=== PATIENT | male | born 1955 | race Caucasian/White ===

== ENCOUNTER 2021-07-14 01:36 | Day surgery (SDC) | payer MEDICARE, SELFPAY ==
[2021-06-27 08:38] VITALS: BMI 22.7
[2021-07-14 06:47] VITALS: BP 118/68; PULSE 53; RESP 15; TEMP 36; O2SAT 100; BMI 22.8
[2021-07-14] MEDS: LACTATED RINGERS 1,000 ML 150 ML IV CONT (06:49)
--- NOTE | 2021-07-14 06:57 | PM.HPGS ---
History of Present Illness History of Present Illness Consent: Risks, benefits, and alternatives have been discussed and questions answered. Patient agrees to proceed with procedure. Chief complaint: neoplasm screening Narrative: Ibrahima Cassidy Jr. is a 65 year old male referred for colon cancer screening. His last colonoscopy was 5 years ago. He had 3 polyps removed at that time Review of Systems Review of Systems: All systems reviewed & are unremarkable except as noted in HPI and below PMFSH Surgical History Surgical History H/O knee surgery Family History Family History Father COPD (chronic obstructive pulmonary disease) Social History Social History Smoking status: Former smoker Tobacco type: cigarettes Alcohol intake: current Drinks per week: 6 Alcohol use details: occasionally Substance use: never Substance use type: does not use Living arrangements: with family Spiritual care concerns: No Meds Home Medications and Allergies Home Medications Medication Instructions Recorded Confirmed Type No Home Medications 11/18/20 07/14/21 History Allergies Allergy/AdvReac Type Severity Reaction Status Date / Time No Known Drug Allergies Allergy Unknown Unknown Verified 07/14/21 06:46 Vital Signs Vital Signs - 24 hr 07/14/21 06:47 Temperature 36.0 C L Pulse Rate 53 L Respiratory Rate 15 Blood Pressure 118/68 Pulse Oximetry 100 Assessment and Plan Assessment and plan (1) Colon cancer screening: Code(s): Z12.11 - Encounter for screening for malignant neoplasm of colon Status: Acute Assessment and Plan: Colonoscopy with possible biopsy or polypectomy or cautery or injection of substances.
--- NOTE | 2021-07-14 07:22 | WPDANESEPPF ---
Anes - Initial Pre Proc Eval Procedure: Operation Date: 07/14/21 08:00 Proposed Procedures p Screening Colonoscopy - Dewayne Pineda MD Date/Time: 07/14/21 07:22 Surgeon: Dewayne Pineda MD Pre Op Diagnosis: neoplasm screening Patient Data Age: 65 Gender: M Height: 1.78 m Weight: 72.1 kg Last Vital Signs Temp 36.0 C L 07/14/21 06:47 Pulse 53 L 07/14/21 06:47 Resp 15 07/14/21 06:47 BP 118/68 07/14/21 06:47 Pulse Ox 100 07/14/21 06:47 Allergies Allergy/AdvReac Type Severity Reaction Status Date / Time No Known Drug Allergies Allergy Unknown Unknown Verified 07/14/21 06:46 Home Medications Medication Instructions Recorded Confirmed Type No Home Medications 11/18/20 07/14/21 History Patient hx anesthesia problems: none Family hx anesthesia problems: none Results Review: All pre-operative results and documents have been reviewed as part of the pre-operative evaluation. FORMERLY [facility], [facility] Surgical History Surgical History H/O knee surgery Family History Family History Father COPD (chronic obstructive pulmonary disease) Social History Social History Smoking status: Former smoker Tobacco type: cigarettes Alcohol intake: current Drinks per week: 6 Alcohol use details: occasionally Substance use: never Substance use type: does not use Living arrangements: with family Spiritual care concerns: No Anes - Eval Final PreProcedure Day of Procedure 07/14/21 07:22 Patient weight: normal Heart: regular rate and rhythm Lungs: clear to auscultation Airway: Mallampati scale class II Neurological: alert and oriented Last oral intake: >/= 8 hours ASA classification: II Emergent: no Anesthetic plan: proceed Anesthesia type and monitoring: general GIVS and standard monitoring Results Review: All pre-operative results and documents have been reviewed as part of the pre-operative evaluation. Informed Consent: The patient's anesthetic plan and its attendant risks and benefits were discussed with the patient/family/POA. Questions were solicited and answers provided to the satisfaction of the patient/family/POA.
[2021-07-14 08:09] VITALS: BP 137/109; PULSE 52; RESP 16; O2SAT 99
[2021-07-14 08:19] VITALS: BP 87/56; PULSE 58; RESP 15; O2SAT 98
[2021-07-14 08:29] VITALS: BP 86/61; PULSE 58; RESP 16; O2SAT 100
== END 2021-07-14 08:44 | disposition home or self-care (01) ==
PROVIDERS: PCP Internal Medicine; Visit Provider Internal Medicine Gastroenterology
PROC: 0DJD8ZZ Inspection of Lower Intestinal Tract, Via Natural or Artificial Opening Endoscopic (ICD-10-PCS; CPT 45378; principal; 2021-07-14 08:00)
DX: Z12.11 Encounter for screening for malignant neoplasm of colon (principal); Z86.010 Personal history of colon polyps; K57.30 Diverticulosis of large intestine without perforation or abscess without bleeding; J44.9 Chronic obstructive pulmonary disease, unspecified; Z87.891 Personal history of nicotine dependence
CPT/HCPCS: G0105; J2704; J7120

== ENCOUNTER 2022-10-05 08:18 | Outpatient (CLI) | payer MEDICARE, SELFPAY ==
[2022-10-05 10:09] LABS: Basophils Percent Auto 0.7 % (0.2-1.2); Eosinophils Absolute Auto 0.3 K/mm3 (0-0.3); Eosinophils Percent Auto 5.3 % (0-4.4); Hematocrit 45.7 % (42.0-52.0); Hemoglobin 15.4 g/dL (14.0-18.0); Immature Granulocyte Absolute 0.03 K/mm3 (0.00-0.031); Immature Granulocyte Percent A 0.5 % (0-0.5); Lymphocytes Absolute Auto 1.71 K/mm3 (0.9-3.2); Lymphocytes Percent Auto 28.5 % (18.3-44.2); Mean Corpuscular HGB Conc 33.7 g/dl (32-36); Mean Corpuscular Hemoglobin 31.8 pg (26-34); Mean Corpuscular Volume 94.4 fl (80-100); Monocytes Absolute Auto 0.5 K/mm3 (0.1-0.6); Neutrophils Absolute Auto 3.4 K/mm3 (1.3-6.7); Platelet Count Result 228 k/mm3 (150-375); Red Blood Count 4.84 M/mm3 (4.6-6.20); Red Cell Distribution Width 13.2 % (11.5-14.5)
[2022-10-05 10:23] LABS: Alanine Aminotransferase 31 U/L (6-50); Albumin Level 4.2 g/dL (3.5-5.1); Alkaline Phosphatase 73 U/L (38-126); Anion Gap 3 mmol/L (8-16); Aspartate Amino Transferase 35 U/L (17-59); Bilirubin,Total 0.7 mg/dL (0.2-1.3); Blood Urea Nitrogen 14 mg/dL (9-20); Calcium 8.7 mg/dL (8.4-10.2); Carbon Dioxide 31 mmol/L (22-30); Chloride 107 mmol/L (98-107); Estimated Glomerular Filt Rate > 60; Glucose 94 mg/dL (65-110); Potassium 4.5 mmol/L (3.4-5.0); Sodium 141 mmol/L (137-145)
[2022-10-05 10:56] LABS: Prostate Specific Antigen 1.7 ng/mL (< OR = 4.0)
== END 2022-10-05 08:19 | disposition home or self-care (01) ==
PROVIDERS: PCP Internal Medicine; Visit Provider Nurse Practitioner
DX: R53.83 Other fatigue (principal); Z13.29 Encounter for screening for other suspected endocrine disorder; Z13.220 Encounter for screening for lipoid disorders; Z12.5 Encounter for screening for malignant neoplasm of prostate
CPT/HCPCS: 36415; 80053; 84153; 85025; G0103

== ENCOUNTER 2023-07-16 11:42 | Outpatient (CLI) | payer MEDICARE, SELFPAY ==
[2023-07-16 18:39] LABS: Basophils Absolute Auto 0.1 K/mm3 (0.0-0.1); Basophils Percent Auto 0.7 % (0.2-1.2); Eosinophils Absolute Auto 0.2 K/mm3 (0-0.3); Eosinophils Percent Auto 3.2 % (0-4.4); Hematocrit 45.9 % (42.0-52.0); Immature Granulocyte Absolute 0.03 K/mm3 (0.00-0.031); Immature Granulocyte Percent A 0.4 % (0-0.5); Lymphocytes Absolute Auto 2.05 K/mm3 (0.9-3.2); Lymphocytes Percent Auto 28.8 % (18.3-44.2); Mean Corpuscular HGB Conc 32.7 g/dl (32-36); Mean Corpuscular Volume 94.8 fl (80-100); Mean Platelet Volume 10.3 fl (7.4-10.4); Monocytes Absolute Auto 0.5 K/mm3 (0.1-0.6); Monocytes Percent Auto 7.5 % (2.6-8.5); Neutrophils Absolute Auto 4.2 K/mm3 (1.3-6.7); Neutrophils Percent Auto 59.4 % (45.5-73.1); Platelet Count Result 234 k/mm3 (150-375); Red Blood Count 4.84 M/mm3 (4.6-6.20); Red Cell Distribution Width 12.7 % (11.5-14.5); White Blood Count 7.1 K/mm3 (4.5-10.0)
[2023-07-16 18:44] LABS: Alanine Aminotransferase 34 U/L (6-50); Albumin Level 4.3 g/dL (3.5-5.1); Alkaline Phosphatase 78 U/L (38-126); Anion Gap 5 mmol/L (8-16); Aspartate Amino Transferase 46 U/L (17-59); Bilirubin,Total 0.9 mg/dL (0.2-1.3); Blood Urea Nitrogen 16 mg/dL (9-20); Calcium 9.4 mg/dL (8.4-10.2); Carbon Dioxide 31 mmol/L (22-30); Chloride 103 mmol/L (98-107); Estimated Glomerular Filt Rate > 60; Glucose 85 mg/dL (65-110); Potassium 4.5 mmol/L (3.4-5.0); Sodium 139 mmol/L (137-145)
[2023-07-16 19:11] LABS: Thyroid Stimulating Hormone 0.812 uIU/mL (0.465-4.680)
== END 2023-07-16 11:43 | disposition home or self-care (01) ==
LOC: ANHGOSHLAB 11:43
PROVIDERS: PCP Internal Medicine; Visit Provider Nurse Practitioner
DX: Z12.5 Encounter for screening for malignant neoplasm of prostate (principal); D64.9 Anemia, unspecified; R53.83 Other fatigue; Z13.220 Encounter for screening for lipoid disorders; Z13.29 Encounter for screening for other suspected endocrine disorder; I48.92 Unspecified atrial flutter
CPT/HCPCS: 36415; 80053; 82728; 84443; 85025

== ENCOUNTER 2023-12-03 08:01 | Outpatient (CLI) | payer MEDICARE, SELFPAY ==
[2023-12-03 15:32] LABS: Cholesterol 241 mg/dL (0-200); HDL Direct 80 mg/dL; Triglycerides 64 mg/dL (<150)
[2023-12-03 15:44] LABS: LDL Cholesterol Direct 128 mg/dL
[2023-12-03 16:04] LABS: Prostate Specific Antigen 1.8 ng/mL (< OR = 4.0)
== END 2023-12-03 08:02 | disposition home or self-care (01) ==
PROVIDERS: PCP Internal Medicine; Visit Provider Nurse Practitioner
DX: Z12.5 Encounter for screening for malignant neoplasm of prostate (principal); E78.5 Hyperlipidemia, unspecified
CPT/HCPCS: 36415; 80061; 84153; G0103

== ENCOUNTER 2024-11-30 08:04 | Outpatient (CLI) | payer MEDICARE, SELFPAY ==
--- OUTSIDE RECORDS SUMMARY | 2024-11-30 08:09 | XMS_ITS | CONTINUITY OF CARE DOCUMENT ---
Author Name stacey ibarra Address Unknown Organization [facility] Address [address] [place] [address] Phone [phone] Care Team Providers Care Local Sales Associate Name Role Phone Jason Valentine MD Unavailable SHANIQUA LANDAVERDE DO Unavailable [phone] SHANIQUA LANDAVERDE DO Unavailable [phone] PROBLEMS Condition Status Date Provider Notes S/P Dual chamb PCM - Biotronik ( MRI Safe) active 2022 Claudia Morales Atrial flutter active Sergio Mejia Personal history of COVID-19 active Sergio ivy Cough active Sergio Mejia Sinus pause- 7 sec active Shaquille Ricardo Sleep apnea, mild active Shaquille Ricardo ENCOUNTERS Date Type Provider Location Encounter Diag nosis - In-person encounter Office Visit Jason Valentine MD [facility] - In-person encounter Office Visit Jason Valentine MD [facility] - In-person encounter Office Visit Jason Valentine MD [facility] - In-person encounter Office Visit Jason Valentine MD [facility] Sinus pause- 7 secSleep apnea, mild - In-person encounter Office Visit Jason Valentine MD [facility] Atrial flutterPersonal history of COVID-19Cough VITAL SIGNS Date Observation Value Provider Body Mass Index (Ratio) 24.25 kg/m2 Jaswinder Ricardo blood pressure, cuff size regular Ke rri Gruenenfelder blood pressure, diastolic 70 mm[Hg] Ke rri Gruenenfelder blood pressure, systolic 142 mm[Hg] Ker ri Gruenenfelder oxygen saturation, oximetry 100 % Claudia Grdungnfelder pulse rate 61 /min Claudia Gruenenfe [facility] weight E&M 169 [lb_av] Claudia Gruenenfe [facility] height E&M 70 [in_i] Claudia Gruenenfe [facility] Body Mass Index (Ratio) 1.43 kg/m2 Edy Kay blood pressure, cuff size regular Fa [facility] blood pressure, diastolic 73 mm[Hg] Fa [facility] blood pressure, systolic 108 mm[Hg] [facility] pulse rate 67 /min [facility] oxygen saturation, oximetry 99 % [facility] respiratory rate E&M 16 /min Jazmyne Darion veliz weight E&M 10 [lb_av] [facility] height E&M 70 [in_i] [facility] Body Mass Index (Ratio) 23.82 kg/m2 Saul Valentine MD blood pressure, cuff size regular Ke rri Gruenenfelder blood pressure, diastolic 66 mm[Hg] Ke rri Gruenenfelder blood pressure, systolic 102 mm[Hg] Lorene ri Lisa oxygen saturation, oximetry 99 % Claudia Jatineldyoni respiratory rate E&M 12 /min Claudia roach pulse rate 65 /min Claudia Gruenenfe lder weight E&M 166 [lb_av] Claudia Gruenenfe lder height E&M 70 [in_i] Claudia Gruenenfe lder Body Mass Index (Ratio) 24.53 kg/m2 Jaswinder hahn [place] blood pressure, cuff size regular Ke rri Gruenenfelder blood pressure, diastolic 80 mm[Hg] Ke rri Gruenenfelder blood pressure, systolic 130 mm[Hg] Lorene ri Gruenenfelder oxygen saturation, oximetry 97 % Claudia Gruenenfelder respiratory rate E&M 12 /min Claudia G ruenenfelder pulse rate 59 /min Claudia Grrickeynenfe lder weight E&M 171 [lb_av] Claudia Gruenenfe lder height E&M 70 [in_i] Claudia Grrickeynenfe lder Body Mass Index (Ratio) 23.10 kg/m2 Sergio Jerezi blood pressure, cuff size regular Ke rri Gruenenfelder blood pressure, diastolic 72 mm[Hg] Ke rri Gruenenfelder blood pressure, systolic 112 mm[Hg] Lorene ri Gruenenfelder oxygen saturation, oximetry 98 % Claudia Gruenenfelder respiratory rate E&M 12 /min Claudia G ruenenfelder pulse rate 72 /min Claudia Gruenenfe lder weight E&M 161 [lb_av] Claudia Gruenenfe lder height E&M 70 [in_i] Claudia Gruenenfe lder ALLERGIES No Known Drug Allergies HISTORY OF MEDICATION USE Medication Status Instructions Dates Provider Indications Com ments Eliquis 5 mg tablet active Take 1 tablet by mouth twice a day Claudia Kennyana Atrial flutter cephalexin 250 mg capsule completed Take 1 capsule by mouth three times a day - June Hines NP Percocet 5-325 mg tablet completed Take 1 tablet by mouth every eight hours as needed for pain do not drive or use any machinery for 12 hours after taking this medication - June Hines NP ibuprofen 200 mg capsule completed 600mg as needed for pain - June Hines NP SOCIAL HISTORY Date Observation Value Provider Underweight no Shaquille Ricardo smoking status Never smoker Marcio Iorfida Underweight yes Derik Kay smoking status Never smoker Derik medellin smoking status Never smoker June lopez NP smoking status Never smoker Shaquille Ricardo smoking status Never smoker June lopez NP INSURANCE PROVIDERS Payer name Policy type / Coverage type Zachary red alliance party ID [employer] MEDICARE GOLD ADVANTAGE HMO Medicare [id number] ADVANCE DIRECTIVES Name Date DISCUSSED - NO DECISION MADE TREATMENT PLAN Date Name Performer [id number],C,n ew onset AFLUTTER. rate is controlled e kg AFLUTTER pt had labs drawn with PCP today. will request results CHADVASC 1 recommendation for aflutter ablation. will check preablation CT, carotids, echo, and home sleep study. explained procedure in detail. all questions and concerns addressed. pt in agreement to proceed with aflutter ablation as planned. June Hines NP [id number],C,FEBRUARY 2022 Elsi Hines NP Electrophysiology: P bryon Buckley Iorfarlin Electrophysiology: N o recent episodes according to device check This visit has been a part of the consistent, comprehensive, and ongoing management of the chronic medical condition(s) listed above for the patient. Marcio Iorfida Electrophysiology: 0 % AFlutter on check 08/27/23 Derik Shirleyinari Electrophysiology:CPAP ordered 1 10/31/22 Derik Kay Electrophysiology:0% AFlutter on interrogation today. June Flora SOFIA Electrophysiology: i ndication for a pacemaker. He does not recall any episodes of syncope June Chungfidelina BUFFERER Electrophysiology Shaquille Ricardo Electrophysiology:s/ p Aflutter ablation. regular upon PE Shaquille Ricardo Electrophysiology:in dication for a pacemaker. He does not recall any episodes of syncope Shaquille Ricardo Electrophysiology:ne w onset AFLUTTER. rate is controlled e kg AFLUTTER pt had labs drawn with PCP today. will request results CHADVASC 1 recommendation for aflutter ablation. will check preablation CT, carotids, echo, and home sleep study. explained procedure in detail. all questions and concerns addressed. pt in agreement to proceed with aflutter ablation as planned. June Flora SOFIA Electrophysiology:FEBRUARY 2022 Elsy Hines BUFFERER Date Name Aorta Duplex Ultraso und Carotid Duplex Bilat eral Complete Echo ABLATION w/ Anesthes ia Sleep Study Home CT Cardiac with cont rast (Pre-Ablation) Carotid Duplex Bilat eral Complete Echo HISTORY OF PROCEDURES Procedure Date Procedure Name Provider Procedure Notes S tatus Complex e/m visit ad d on Jason Valentine MD completed EKG Jason Valentine MD comp leted Schedule Followup Jason Valentine MD de cember 29 Dr. Valentine completed EKG Jason Valentine MD comp leted venous ablation, subsequent veins Jason Valentine MD completed
--- OUTSIDE RECORDS SUMMARY | 2024-11-30 08:09 | XMS_ITS | Encounter Summary ---
Author Organization [facility] Address [address] [place] [address] Care Team Providers Care Music Intern Name Role Phone Unavailable Primary Care Provider Unavailabl e Encounter Details Date Type Department Care Team (Late st Contact Info) Description 10/27/2018 Lab Requisition [facility] Care DermPath Lab [address] [place] [id number] Florina Mendoza MD [address] [place] [address] [place] [address] Social History Tobacco Use Types Packs/Day Years Used Date Smoking Tobacco: Never Assessed Sex and Gender Information Value Date Recorded Sex Assigned at Not on file Gender Identity Not on file Sexual Orientation Not on file documented as of this encounter Plan of Treatment Not on file documented as of this encounter Procedures Procedure Name Priority Date/Time Associated Diagnosis Comments DERMATOPATH TECHNICAL REPORT Routine 10/26/2018 12:00 AM DISASTER RESPONSE DIRECTOR documented in this encounter Results * DERMATOPATH TECHNICAL REPORT (10/26/2018 12:00 AM DISASTER RESPONSE DIRECTOR) Case Report Dermatopathology Report Case: [id number] Authorizing Provider: Florina Mendoza MD Collected: 10/26/2018 12:00 AM Pathologist: Darion Hdez MD Received: 10/27/2018 06:29 AM Specimen: Skin, left neck 9 11:58 AM DISASTER RESPONSE DIRECTOR DERMATOPATHOLOGY LABORATORY Addendum 1 At the request of the diagnosing physician, the technical component for GMS and Tissue Gram was performed by [facility] Dermatopathology Laboratory. 9 11:58 AM DISASTER RESPONSE DIRECTOR DERMATOPATHOLOGY LABORATORY Addendum electronically signed by Darion Hdez MD on 11/02/2018 at 11:58 AM Clinical History R/O acd vs ctd vs acne vs ra 9 11:58 AM DISASTER RESPONSE DIRECTOR DERMATOPATHOLOGY LABORATORY Gross Description Specimen A: Received is one formalin filled container labeled with the patient's name and designated left neck. The specimen consists of a punch biopsy measuring 4x4x5 mm, bisected. Jar 0. [facility] Dermatopathology Laboratory performed the technical component only. 11:58 AM [facility] DERMATOPATHOLOGY LABORATORY Embedded Images 11:58 AM [facility] DERMATOPATHOLOGY LABORATORY DISCLAIMER An external and internal positive and negative controls are appropriate for the histochemical, immunohistochemical and immunofluorescence stain(s) in this case (if any), except where stated explicitly. The performance characteristics of the stain(s) cited in this report were developed and its performance characteristic determined by the Dermatopathology Laboratory at [facility], directed by Dr. Danie Hdez. These tests need not be, and therefore are not, approved by the [place] Food and Drug Administration. The tests are used for clinical purposes. 11:58 AM [facility] DERMATOPATHOLOGY LABORATORY Pathology/Cytolog y TISSUE SPECIMEN FROM SKIN / Unknown 10/26/2018 10/27/2018 6:29 AM DISASTER RESPONSE DIRECTOR Florina Mendoza MD LAB - PATHOLOGY/CYTO LOGY ORDERABLES DERMATOPATHOLOGY LABORATORY [facility] - Department of Dermatology [address] [place] [address], [address]th [place] [address], [facility] [phone] documented in this encounter Visit Diagnoses Not on filedocumented in this encounter
--- OUTSIDE RECORDS SUMMARY | 2024-11-30 08:09 | XMS_ITS | Clinical Summary ---
Author Organization [facility] Address [address] [place] [address] Care Team Providers Care Hearing Screen Coordinator Name Role Phone Unavailable Primary Care Provider Unavailabl e Source Comments [facility],non-owned Affiliates and Associated Physician Practices is amultiple site organization consisting of ambulatory clinics and hospital sitesin [place], [place] and [place]. This disclosure is being madepursuant to the Care Everywhere program and may not contain all information available regarding this patient. Last updated 18.[facility] Social History Tobacco Use Types Packs/Day Years Used Date Smoking Tobacco: Never Assessed Sex and Gender Information Value Date Recorded Sex Assigned at Not on file Gender Identity Not on file Sexual Orientation Not on file Plan of Treatment Health Maintenance Due Date Last Done Comments COLOGUARD (AGES 45-75) - COL ON CA SCREENING 1954 COLON MONITORING 1954 COLONOSCOPY - COLON CA SCREENING 1954 CT COLONOGRAPHY - COLON CA SCREENING 1954 Colorectal Cancer Screening 1954 FIT - COLON CA SCREENING 1954 FLEX SIG - COLON CA SCREENING 1954 LIPID TESTING 1954 HEPATITIS C SCREENING 09/30/1972 DTAP/TDAP/TD VACCINES (1 - Tdap) 1973 PNEUMOCOCCAL VACCINE 50+ (1 of 1 - PCV) 2004 ZOSTER VACCINE (1 of 2) 2004 COVID-19 VACCINE ( - 2023-2 5 season) 2024 INFLUENZA VACCINE (#1) 2024 DEPRESSION SCREENING 09/13/2024 Respiratory Syncytial Virus (RSV) Vaccine Pt: or over 60 yrs (1 - 1-dose 75+ series) 2029 HEPATITIS B VACCINE Aged Out No longe r eligible based on patient's age to complete this topic HIB VACCINE Aged Out No longer eligi ble based on patient's age to complete this topic HPV VACCINE Aged Out No longer eligi ble based on patient's age to complete this topic MENINGOCOCCAL (Group B) VACC INE SHARED DECISION-MAKING Aged Out No longer eligibl e based on patient's age to complete this topic MENINGOCOCCAL GROUPS A/C/Y/W VACCINE Aged Out No longer eligible b ased on patient's age to complete this topic
--- OUTSIDE RECORDS SUMMARY | 2024-11-30 08:09 | XMS_ITS | Referral Summary ---
Author Organization [facility] [address] Address [address] [place] [phone] Care Team Providers Care Junior Sales Assistant Name Role Phone Iker Bhardwaj DO Primary Care Provider [phone] Allergies No known active allergies Medications apixaban (ELIQUIS) 5 mg tabletIndication s:Cardioversion of Atrial Flutter Take 1 tablet (5 mg total) by mouth 2 (two) times a day Active Active Problems Problem Noted Date Diagnosed Date S/P ablation of atrial flutter 08/10/2023 Atrial flutter 07/22/2023 Social History Tobacco Use Types Packs/Day Years Used Date Smoking Tobacco: Never Smokeless Tobacco: Never Tobacco Cessation:Counseling Given: Not Answered AUDIT-C Answer Date Recorded Q1: How often do you have a drink containing alc ohol? Monthly or less 08/10/2023 Q2: How many drinks containi ng alcohol do you have on a typical day when you are drinking? 3 or 4 08/10/2023 Q3: How often do you have si x or more drinks on one occasion? Never 08/10/2023 Personal Safety Answer Date Recorded Have you ever been in or are you currently in a harmful physical or emotional relationship or is someone making you feel afraid or unsafe? Denies 08/10/2023 Sex and Gender Information Value Date Recorded Sex Assigned at Not on file Legal Sex Male 8:18 PM ONCOLOGY PATIENT NAVIGATOR Gender Identity Not on file Sexual Orientation Not on file Last Filed Vital Signs Vital Sign Reading Time Taken Comments Blood Pressure 132/74 08/11/2023 7:00 AM ONCOLOGY PATIENT NAVIGATOR Pulse 68 08/11/2023 7:00 AM ONCOLOGY PATIENT NAVIGATOR Temperature 36.6 C (97.9 F) 08/11/2023 7:00 AM ONCOLOGY PATIENT NAVIGATOR Respiratory Rate 18 08/11/2023 7:00 AM ONCOLOGY PATIENT NAVIGATOR Oxygen Saturation 98% 08/11/2023 7:00 AM ONCOLOGY PATIENT NAVIGATOR Inhaled Oxygen Concentration - - Weight 73.5 kg (162 lb) 08/10/2023 4:45 PM ONCOLOGY PATIENT NAVIGATOR Height 180.3 cm (5' 10.98 ) 08/10/2023 4:45 PM C Body Mass Index 22.6 08/10/2023 4:45 PM ONCOLOGY PATIENT NAVIGATOR Plan of Treatment Not on file Insurance [facility] [employer] [facility] [employer] Advance Directives For more information, please contact: [phone] * Full Code (Latest Code Status on File) Date Activated Date Inactivated Comments 08/10/2023 4:46 PM 08/11/2023 5:21 PM Care Teams Junior Sales Assistant Relationship Specialty Start Date End Date Iker Bhardwaj DO PCP - General Internal Medicine 06/05/23
--- OUTSIDE RECORDS SUMMARY | 2024-11-30 08:09 | XMS_ITS | Clinical Summary ---
Author Organization [facility] [address] [place] Address [address] [place] [id number] Care Team Providers Care Channel Layer Name Role Phone Iker Bhardwaj DO Primary Care Provider [phone] Allergies No known active allergies Medications apixaban (ELIQUIS) 5 mg tabletIndication s:Cardioversion of Atrial Flutter Take 1 tablet (5 mg total) by mouth 2 (two) times a day Active Active Problems Problem Noted Date Diagnosed Date S/P ablation of atrial flutter 08/10/2023 Atrial flutter 07/22/2023 Medical History Medical History Date Comments Atrial flutter, unspecified type (HCC) Social History Tobacco Use Types Packs/Day Years [...] on file Legal Sex Male 8:18 PM EMBRYOLOGY PROFESSOR Gender Identity Not on file Sexual Orientation Not on file Obstetrics History Last Filed Vital Signs Vital Sign Reading Time Taken Comments Blood Pressure 132/74 08/11/2023 7:00 AM EMBRYOLOGY PROFESSOR Pulse 68 08/11/2023 7:00 AM EMBRYOLOGY PROFESSOR Temperature 36.6 C (97.9 F) 08/11/2023 7:00 AM EMBRYOLOGY PROFESSOR Respiratory Rate 18 08/11/2023 7:00 AM EMBRYOLOGY PROFESSOR Oxygen Saturation 98% 08/11/2023 7:00 AM EMBRYOLOGY PROFESSOR Inhaled Oxygen Concentration - - Weight 73.5 kg (162 lb) 08/10/2023 4:45 PM EMBRYOLOGY PROFESSOR Height 180.3 cm (5' 10.98 ) 08/10/2023 4:[address] Body Mass Index 22.6 08/10/2023 4:45 PM EMBRYOLOGY PROFESSOR Plan of Treatment Health Maintenance Due Date Last Done Comments Colon Cancer Screening-Colonoscopy 1954 Depression Screening 1954 Hepatitis C Screening 1954 DTaP/Tdap/Td Vaccine (1 - Tdap) 1965 Hepatitis B Screening 1972 Pneumococcal vaccine 65+ (1 of 1 - PCV) 2004 Zoster Vaccine (1 of 2) 2004 Abdominal Aortic Aneurysm (AAA) Screen 2019 Well Visit 65+ 2019 Fall Risk Assessment 08/11/2024 08/11/2023 Influenza Vaccine Completed 07/14/[address] [facility] Advance Directives For more information, please contact: [phone] * Full Code (Latest Code Status on File) Date Activated Date Inactivated Comments 08/10/2023 4:46 PM 08/11/2023 5:21 PM Care Teams Channel Layer Relationship Specialty Start Date End Date Iker Bhardwaj DO PCP - General Internal Medicine 06/05/23
[2024-11-30 14:39] LABS: Basophils Absolute Auto 0.1 K/mm3 (0.0-0.1); Basophils Percent Auto 0.8 % (0.2-1.2); Eosinophils Absolute Auto 0.3 K/mm3 (0-0.3); Eosinophils Percent Auto 4.8 % (0-4.4); Hematocrit 48.6 % (42.0-52.0); Hemoglobin 15.8 g/dL (14.0-18.0); Immature Granulocyte Absolute 0.02 K/mm3 (0.00-0.031); Immature Granulocyte Percent A 0.3 % (0-0.5); Lymphocytes Absolute Auto 2.12 K/mm3 (0.9-3.2); Mean Corpuscular HGB Conc 32.5 g/dl (32-36); Mean Corpuscular Volume 95.3 fl (80-100); Mean Platelet Volume 10.5 fl (7.4-10.4); Monocytes Absolute Auto 0.4 K/mm3 (0.1-0.6); Monocytes Percent Auto 7.1 % (2.6-8.5); Neutrophils Absolute Auto 3.2 K/mm3 (1.3-6.7); Platelet Count Result 223 k/mm3 (150-375); Red Cell Distribution Width 12.4 % (11.5-14.5); White Blood Count 6.1 K/mm3 (4.5-10.0)
[2024-11-30 14:41] LABS: Alanine Aminotransferase 28 U/L (6-50); Albumin Level 4.4 g/dL (3.5-5.1); Alkaline Phosphatase 73 U/L (38-126); Anion Gap 5 mmol/L (4-12); Aspartate Amino Transferase 42 U/L (17-59); Bilirubin,Total 0.7 mg/dL (0.2-1.3); Blood Urea Nitrogen 16 mg/dL (9-20); Calcium 9.2 mg/dL (8.4-10.2); Carbon Dioxide 31 mmol/L (22-30); Chloride 105 mmol/L (98-107); Cholesterol 252 mg/dL (0-200); Estimated Glomerular Filt Rate > 60; Glucose 72 mg/dL (65-110); HDL Direct 80 mg/dL; Potassium 4.4 mmol/L (3.4-5.0); Sodium 141 mmol/L (137-145); Triglycerides 70 mg/dL (<150)
[2024-11-30 14:52] LABS: LDL Cholesterol Direct 133 mg/dL
[2024-11-30 15:12] LABS: Prostate Specific Antigen 2.5 ng/mL (< OR = 4.0)
== END 2024-11-30 08:05 | disposition home or self-care (01) ==
LOC: ANHGOSHLAB 08:06
PROVIDERS: PCP Internal Medicine; Visit Provider Nurse Practitioner
DX: E78.2 Mixed hyperlipidemia (principal); Z13.29 Encounter for screening for other suspected endocrine disorder; Z12.5 Encounter for screening for malignant neoplasm of prostate
CPT/HCPCS: 36415; 80053; 80061; 84153; 85025; G0103